=== PATIENT | female | born 1965 | race Caucasian/White ===

== ENCOUNTER 2017-06-02 04:54 | Inpatient (IN) | payer OTHER ==
[2017-05-05 11:37] VITALS: BMI 36.0
--- NOTE | 2017-05-05 12:06 | PAT Medication Instructions ---
Service Date May 05, 2017. Current Home Medication List Alprazolam (Xanax), 1 MG PO QID Celecoxib (CeleBREX), 200 MG PO BID Cholecalciferol (Vitamin D3), 5,000 UNITS PO HS Cyclobenzaprine Hcl (Flexeril), 10 MG PO TID PRN for PRN Fluoxetine (Prozac), 40 MG PO QAM Gabapentin (Neurontin), 300 MG PO HS Oxycodone Ir (Roxicodone Ir), 5 MG PO Q6H PRN for Pain Potassium Ext Rel (Klor-Con), 20 MEQ PO BID [Vitamin B12], 1 TAB PO QAM Medication Instructions For Your Scheduled Surgery - Hold the following medications the morning of surgery: Cyclobenzaprine Hcl (Flexeril), 10 MG PO TID PRN for PRN [Vitamin B12], 1 TAB PO QAM Potassium Ext Rel (Klor-Con), 20 MEQ PO BID - Take the following medications the morning of surgery with a sip of water: Alprazolam (Xanax), 1 MG PO QID Celecoxib (CeleBREX), 200 MG PO BID (ok to continue per surgeon) Fluoxetine (Prozac), 40 MG PO QAM Oxycodone Ir (Roxicodone Ir), 5 MG PO Q6H PRN for Pain (if needed, can be taken up to four hours before surgery) - Take the following medications as scheduled the night before surgery: Alprazolam (Xanax), 1 MG PO QID Cholecalciferol (Vitamin D3), 5,000 UNITS PO HS Celecoxib (CeleBREX), 200 MG PO BID (ok to continue per surgeon) Cyclobenzaprine Hcl (Flexeril), 10 MG PO TID PRN for PRN (if needed) Gabapentin (Neurontin), 300 MG PO HS Potassium Ext Rel (Klor-Con), 20 MEQ PO BID Oxycodone Ir (Roxicodone Ir), 5 MG PO Q6H PRN for Pain (if needed) If you have any questions please call us at [phone] or [phone] or [phone]
--- NOTE | 2017-05-05 12:44 | DIAGNOSTIC IMAGING REPORT ---
CHEST 2 VIEWS ROUTINE CLINICAL HISTORY: Preoperative chest COMPARISON STUDY: No previous studies for comparison. FINDINGS: The cardiac and mediastinal contours are normal. There is no evidence of focal pulmonary consolidation. There is no evidence of failure. No pleural effusions are visualized.[ IMPRESSION: No active disease in the chest. Electronically signed by: Alverto Edmond M.D. 05/05/2017 12:43 PM Dictated Date/Time: 05/05/2017 12:43 PM
[2017-05-05 12:56] LABS: BASO % 0.3 %; BASO ABS # 0.02 K/uL (0-0.2); EOS % 3.2 %; EOS ABS # 0.23 K/uL (0-0.5); HEMATOCRIT 39.6 % (37-47); HEMOGLOBIN 13.2 g/dL (12.0-16.0); IG# 0.01 K/uL (0.00-0.02); LYMPH % 38.2 %; LYMPH ABS # 2.78 K/uL (1.2-3.4); MEAN CORPUSCULAR HEMOGLOBIN 27.3 pg (25-34); MEAN CORPUSCULAR HGB CONC 33.3 g/dl (32-36); MEAN PLATELET VOLUME 9.7 fL (7.4-10.4); MONO % 7.8 %; MONO ABS # 0.57 K/uL (0.11-0.59); NEUT % 50.4 %; NEUT ABS # 3.66 K/uL (1.4-6.5); PLATELET COUNT 255 K/uL (130-400); RED CELL DISTRIBUTION WIDTH CV 13.5 % (11.5-14.5); RED CELL DISTRIBUTION WIDTH SD 40.6 fL (36.4-46.3); WHITE BLOOD COUNT 7.27 K/uL (4.8-10.8)
[2017-05-05 13:05] LABS: PTT PATIENT 28.9 SECONDS (21.0-31.0)
[2017-05-05 13:52] LABS: CALCIUM 9.3 mg/dl (8.5-10.1); CREATININE 1.22 mg/dl (0.60-1.20); POTASSIUM 4.1 mmol/L (3.5-5.1)
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
[~2017-06-02] VITALS: Ht 160 cm; Wt 93.6 kg
[2017-06-02] VITALS (9 sets, daily range): BP systolic 95–133; BP diastolic 62–92; PULSE 69–109; TEMP 35.6–37; O2SAT 95–100; Ht 160 cm; Wt 93.6 kg
[~2017-06-02 04:54] MED LIST: ALPR1TAB3 PO; CHOL20007 PO; CLB/200 PO; CYCL10TA6 PO; FLUO40CA8 PO; GABA-113 PO; OXYC1TAB3 PO; POTA20TA16 PO; VITAMIN B12 PO
[2017-06-02] MEDS ORDERED: ACETAMINOPHEN 500 MG TAB PO SCH (06:00)
[2017-06-02] MEDS ORDERED: CEFAZOLIN 2000MG IV PUSH 10 ML IV SCH (06:00)
[2017-06-02] MEDS ORDERED: CeleBREX 200 MG CAP PO SCH ×2 (06:00→09:00)
[2017-06-02] MEDS ORDERED: FAMOTIDINE 20 MG TAB PO SCH (06:00)
[2017-06-02] MEDS ORDERED: LACTATED RINGER'S 1000ML 500 ML IV SCH (06:00)
[2017-06-02] MEDS ORDERED: GABAPENTIN 300 MG CAP PO SCH (06:00)
[2017-06-02] MEDS ORDERED: LACTATED RINGER'S 1000ML IV SCH (06:00)
[2017-06-02] MEDS ORDERED: DEXAMETHASONE 4 MG TAB PO SCH (06:00)
[2017-06-02] MEDS ORDERED: ROPIVACAINE 5MG/ML 30 ML 150 MG, BUPIVACAINE 0.5% MPF INJ 30 ML, EpINEphrine HCL INJ 0.... INFIL SCH ×8 (06:00)
[2017-06-02] MEDS ORDERED: LACTATED RINGER'S 1000ML 1,000 ML IV SCH (06:00)
[2017-06-02] MEDS ORDERED: BUPIVACAINE 0.25% 30 ML VIAL ONE (06:29)
[2017-06-02] MEDS ORDERED: BUPIVACAINE 0.5 % 5 MG/1 ML PF 10ML VIAL ONE (06:29)
[2017-06-02] MEDS ORDERED: BACITRACIN 50000 UNIT VIAL ONE (06:30)
[2017-06-02] MEDS ORDERED: ORTHO JOINT ANESTHETIC ONE (06:30)
[2017-06-02] MEDS ORDERED: POVIDONE-IODINE OP SOLN 30 ML BTL ONE (06:30)
[2017-06-02] MEDS: TRANEXAMIC ACID INJ 1,000 MG in SYRINGE 0 ML IV SCH ×2 (06:30→06:40)
[2017-06-02] MEDS ORDERED: MIDAZOLAM HCL 1 MG/ML 2ML VIAL ONE (06:48)
[2017-06-02] MEDS ORDERED: VANCOMYCIN INJ 1,500 MG in SODIUM CHLORIDE 0.9% 500ML 500 ML IV STA (06:59)
[2017-06-02] MEDS ORDERED: NURSING VERBAL MED ORDER ONE (07:00)
--- NOTE | 2017-06-02 07:02 | History & Physical Bridge Note ---
H&P Re-Evaluation Bridge Note: I have examined the patient, reviewed the History & Physical and in the interval since the performance of the History & Physical I have noted the following changes of clinical significance: No changes noted
[2017-06-02] MEDS ORDERED: ATROPINE SULFATE 0.1 MG/ML 5ML SYR IV PRN (07:45)
[2017-06-02] MEDS ORDERED: PHENYLEPHRINE 100MCG/ML 5ML SYR IV PRN (07:45)
[2017-06-02] MEDS ORDERED: ONDANSETRON INJ 2 MG/ML 2 ML VIAL IV PRN ×2 (07:45→09:00)
[2017-06-02] MEDS ORDERED: HYDROmorphone INJ 2 MG/ML SYR/VIAL IV PRN (07:45)
--- NOTE | 2017-06-02 08:09 | [facility] Operative Report ---
Operative Report Operative Date Jun 02, 2017. Pre-Operative Diagnosis Degenerative joint disease right knee posttraumatic Post-Operative Diagnosis Degenerative joint disease right knee posttraumatic Procedure(s) Performed Right Total Knee Arthroplasty, Cemented utilizing [employer] journey to patient-matched total knee arthroplasty size 3 femur to tibia 11 poly-[address] Matt Hernandes Registered Radiologic Technologist Surgeon(s) Owen Hutchinson PA-C Estimated Blood Loss 5ml Findings Patient presents with severe end-stage tricompartmental degenerative joint disease of the right knee not responsive to conservative therapy presents for right total knee arthroplasty Specimens A: Right knee bone and tissue Complication(s) None Disposition Recovery Room / PACU Indications Patient presents with a severe end-stage DJD nonresponse to conservative therapy patient has subchondral sclerosis osteophyte formation marginal osteophytes cystic changes and presents for total knee arthroplasty Description of Procedure After proper prepping and draping of the Right lower extremity anterior midline incision was made over the region of the extensor extensor mechanism after meticulous hemostasis was obtained and maintained in subcutaneous tissues a medial parapatellar incision was made The patella was subluxed lateralward the medial lateral gutter were cleaned from any hypertrophic synovitis and scar tissue of the distal femoral block was placed and the distal femoral osteotomy cut was made subsequently the chamfers anterior and posterior osteotomy cuts were made utilizing the 4-in-1 block the tibia was subsequently subluxed anteriorward medial and ateral meniscal remnants were excised in their entirety remnants of the anterior and posterior cruciate ligaments were excised in their entirety excellent exposure of the proximal tibia was obtained the tibial osteotomy guide was placed on the proximal tibial osteotomy cut was made once again the knee was irrigated with copious amounts of sterile saline solution the patella was subsequently everted lateralward thickened scar tissue around the patella was removed the patella was subsequently cut utilizing a freehand technique and was drilled prepared for final preparation and placement of patella socially flexion-extension gaps were checked and the equal and symmetric trials were placed to the appropriate femoral and tibial trials with poly-spacer being placed for equal flexion and extension gaps and full range of motion including extension to 0 and flexion to 140 the trial components after having been taken to recovery range of motion was subsequently removed meticulous hemostasis was obtained and maintained subsequently a knee block injection of joint cocktail including ropivacaine 0.5% 150 mg. Bupivacaine 0.5 % epinephrine 1-200,030 mL's toradol 30 mg dexamethasone 4 mg ketamine 10 mg clonidine 100 micrograms normal saline solution 30 mg was infiltrated into the soft tissues of the posterior knee medial lateral gutters and periosteal synovium special attention was paid to protect neurovascular structures at all times subsequently trial components having been removed the knee was irrigated with sterile saline solution. debris was removed the proximal tibia was subsequently prepared and was made ready for the placement of the tibial component tibial component was also cemented and tamped into position the femoral component was subsequently placed and cemented in the position the patellar component was subsequently cemented in position because hemostasis once again obtained and maintained wound having been thoroughly irrigated with debridement and debridement lavage was performed as well as a medial parapatellar incision closed with #1 Vicryl in interrupted fashion subcutaneous was closed with #2 Vicryl skin was closed with skin clips. PA-C was necessary for prepping and drapping as well as wound closure of deep fascia Sub cutaneous tissue and skin and was necessary for the case. A sterile compressive dressing was placed patient was taken to recovery in stable condition of report dictated by Cecilio I attest to the content of the Intraoperative Record and any orders documented therein. Any exceptions are noted below. I attest to the content of the Intraoperative Record and any orders documented therein. Any exceptions are noted below.
[2017-06-02] MEDS ORDERED: PROPOFOL IV EMULSION 10 MG/ML 20 ML VIAL IV ONE (08:12)
--- NOTE | 2017-06-02 08:14 | [facility] Post Operative Brief Note ---
Immediate Operative Summary Operative Date Jun 02, 2017. Pre-Operative Diagnosis Degenerative joint disease right knee posttraumatic Post-Operative Diagnosis Degenerative joint disease right knee posttraumatic Procedure(s) Performed Right Total Knee Arthroplasty, Cemented utilizing [employer] journey to patient-matched total knee arthroplasty size 3 femur to tibia 11 poly-[address] Matt Hernandes Emt/Dispatcher Surgeon(s) Owen Hutchinson PA-C Estimated Blood Loss 5ml Findings Consistent with Post-Op Diagnosis Specimens A: Right knee bone and tissue Anesthesia Type MAC Spinal Regional Disposition Disposition: Recovery Room / PACU
[2017-06-02] MEDS ORDERED: SOD PHOSPHATE/SOD BIPHOSPHATE ENEMA 132 ML BTL PR PRN (09:00)
[2017-06-02] MEDS ORDERED: CEFAZOLIN IV 2,000 MG in DEXTROSE 5% 50ML 50 ML IV SCH (09:00)
[2017-06-02] MEDS ORDERED: ALUMINUM/MAGNESIUM/SIMETH (MAALOX MAX) 30 ML UDC PO PRN (09:00)
[2017-06-02] MEDS ORDERED: ZOLPIDEM TARTRATE 5 MG TAB PO PRN (09:00)
[2017-06-02] MEDS ORDERED: MAGNESIUM HYDROXIDE SUSP 30 ML UDC PO PRN (09:00)
[2017-06-02] MEDS ORDERED: CYCLOBENZAPRINE HCL 10 MG TAB PO PRN (09:00)
[2017-06-02] MEDS ORDERED: MoRPHine SULFATE 2 MG/ML CARP IV PRN (09:00)
[2017-06-02] MEDS ORDERED: BISACODYL 10 MG SUPP PR PRN (09:00)
[2017-06-02] MEDS ORDERED: TRAMADOL HCL 50 MG TAB PO PRN (09:00)
--- NOTE | 2017-06-02 09:30 | DIAGNOSTIC IMAGING REPORT ---
R KNEE 1 OR 2 VIEWS ROUTINE CLINICAL HISTORY: 51 years-old Female presenting with AP/LATERAL IN PACU RIGHT KNEE. TECHNIQUE: Frontal and lateral views of the right knee were obtained. COMPARISON: None. FINDINGS: Postsurgical changes of total right knee arthroplasty with patellar resurfacing. Surgical drain and intra-articular and soft tissue emphysema noted. No periprosthetic fracture. No hardware complication. No malalignment. IMPRESSION: Expected postsurgical findings status post right total knee arthroplasty with patellar resurfacing. Electronically signed by: Demetris Lorenzana M.D. 06/02/2017 9:28 AM Dictated Date/Time: 06/02/2017 9:26 AM
--- NOTE | 2017-06-02 09:53 | Anesthesiology Progress Note ---
Anesthesia Post Op Note Date & Time Jun 02, 2017 at 09:53 Vital Signs Pain Intensity: 0 Vital Signs Past 12 Hours Date Time Temp Pulse Resp B/P (MAP) Pulse Ox O2 Delivery O2 Flow Rate FiO2 06/02/17 09:32 36.3 94 18 113/88 (93) 100 Nasal Cannula 2 06/02/17 09:16 102 20 105/74 100 06/02/17 09:16 101 20 06/02/17 09:16 101 20 06/02/17 09:16 102 20 105/74 100 06/02/17 09:11 104 19 100 06/02/17 09:11 104 19 100 06/02/17 09:11 104 19 06/02/17 09:11 104 19 06/02/17 09:10 106/66 06/02/17 09:10 106/06/02/17 09:06 104 18 06/02/17 09:06 104 18 100 06/02/17 09:06 104 18 100 06/02/17 09:06 104 18 06/02/17 09:05 9106/02/17 09:05 06/02/17 09:01 106 17 100 06/02/17 09:01 106 17 06/02/17 09:01 106 17 06/02/17 09:01 106 17 100 06/02/17 09:00 96/61 06/02/17 09:00 96/61 06/02/17 08:59 82/50 06/02/17 08:59 82/50 06/02/17 08:56 98 16 89/50 95 06/02/17 08:56 98 16 89/50 95 06/02/17 08:56 97 16 06/02/17 08:56 97 16 06/02/17 08:56 36.0 98 16 89/50 (69) 100 Oxymask 10 06/02/17 05:40 37 91 18 133/92 98 Room Air Notes Mental Status: alert / awake / arousable, participated in evaluation Pt Amnestic to Procedure: Yes Nausea / Vomiting: adequately controlled Pain: adequately controlled Airway Patency, RR, SpO2: stable & adequate BP & HR: stable & adequate Hydration State: stable & adequate Anesthetic Complications: no major complications apparent
[2017-06-02] MEDS ORDERED: MoRPHine SULFATE 10 MG/ML CARP/VIAL IV PRN (11:15)
[2017-06-02] MEDS ORDERED: MoRPHine SULFATE 4 MG/ML 1 ML CARP\\VIAL IV PRN (11:15)
[2017-06-02] MEDS ORDERED: KETOROLAC TROMETHAMINE 30 MG/ML VIAL IV. PRN (12:00)
[2017-06-02] MEDS: PANTOprazole SOD 40 MG TAB PO SCH (12:53)
[2017-06-02] MEDS: MULTIVITAMIN TAB PO SCH (12:53)
[2017-06-02] MEDS: OXYCODONE HCL IR 5 MG TAB (IMMEDIATE RELEASE) PO PRN ×3 (12:54→21:00)
[2017-06-02] MEDS: D5W AND 1/2NSS + 20MEQ KCL 1,000 ML IV SCH ×2 (12:54→21:00)
[2017-06-02] MEDS: FLUOXETINE HCL 20 MG CAP PO SCH (12:54)
[2017-06-02] MEDS: ACETAMINOPHEN 500 MG TAB PO SCH ×2 (14:27→21:01)
[2017-06-02] MEDS: CEFAZOLIN IV 2,000 MG in SYRINGE 5 ML IV SCH ×2 (15:30→23:34)
[2017-06-02] MEDS: ALPRAZOLAM 0.5 MG TAB PO SCH ×3 (15:30→21:00)
[2017-06-02] MEDS: CHOLECALCIFEROL 1000 INTER.UNIT TAB PO SCH (21:00)
[2017-06-02] MEDS: DOCUSATE SODIUM 100 MG CAP PO SCH (21:00)
[2017-06-02] MEDS: POTASSIUM CHLORIDE 20 MEQ TABCR PO SCH (21:00)
[2017-06-02] MEDS: GABAPENTIN 300 MG CAP PO SCH (21:00)
[2017-06-02] MEDS: SENNA 8.6 MG TAB PO SCH (21:00)
[2017-06-02] MEDS: ASPIRIN 81 MG ECTAB PO SCH (21:01)
[2017-06-03 03:13] VITALS: BP 100/66; PULSE 81; TEMP 36.5; O2SAT 97
[2017-06-03] MEDS: ACETAMINOPHEN 500 MG TAB PO SCH ×3 (05:19→21:05)
[2017-06-03 06:08] LABS: HEMATOCRIT 32.9 % (37-47); HEMOGLOBIN 11.1 g/dL (12.0-16.0); MEAN CORPUSCULAR HEMOGLOBIN 27.7 pg (25-34); MEAN CORPUSCULAR HGB CONC 33.7 g/dl (32-36); MEAN PLATELET VOLUME 9.6 fL (7.4-10.4); PLATELET COUNT 215 K/uL (130-400); RED CELL DISTRIBUTION WIDTH CV 13.6 % (11.5-14.5); RED CELL DISTRIBUTION WIDTH SD 41.4 fL (36.4-46.3); WHITE BLOOD COUNT 17.47 K/uL (4.8-10.8)
[2017-06-03] MEDS: D5W AND 1/2NSS + 20MEQ KCL 1,000 ML IV SCH (06:39)
[2017-06-03 06:43] LABS: CALCIUM 8.3 mg/dl (8.5-10.1); CREATININE 1.37 mg/dl (0.60-1.20); POTASSIUM 4.4 mmol/L (3.5-5.1)
[2017-06-03 06:58] VITALS: BP 97/68; PULSE 96; TEMP 36.6; O2SAT 99
--- NOTE | 2017-06-03 08:14 | Orthopedic Progress Note ---
Orthopedic Progress Note Date of Service Jun 03, 2017. Subjective Post OP Day: 1 Reports: feeling well, Denies: chest pain, SOB, nausea / vomiting, light headedness, calf pain Objective calves soft nontender, N/V intact, capillary refill less than 2 sec., dressing C /D/I, A&O x3, toes mobile, hemovac drainage (235/75cc per shift) Date Time Temp Pulse Resp B/P (MAP) Pulse Ox O2 Delivery O2 Flow Rate FiO2 06/03/17 07:00 Room Air 06/03/17 06:58 36.6 96 19 97/68 (78) 99 Room Air 06/03/17 03:13 36.5 81 18 100/66 (77) 97 Room Air 06/02/17 23:30 Room Air 06/02/17 22:57 36.5 69 16 95/62 (73) 96 Room Air 06/02/17 20:51 35.6 91 16 99/67 (78) 95 Room Air 06/02/17 15:39 36.5 99 18 108/68 (81) 95 Room Air 06/02/17 15:30 Room Air 06/02/17 12:48 109 16 125/85 (98) 99 Room Air 06/02/17 12:05 93 16 119/87 (98) 98 Room Air 06/02/17 10:59 82 16 122/86 (98) 100 2.0 06/02/17 10:40 100 Nasal Cannula 2.0 06/02/17 10:27 79 16 118/86 (97) 100 2.0 06/02/17 10:00 36.5 79 16 117/81 (93) 100 Nasal Cannula 2.0 06/02/17 09:52 90 17 06/02/17 09:52 88 17 99 06/02/17 09:51 118/80 06/02/17 09:47 87 18 100 06/02/17 09:47 88 18 06/02/17 09:46 120/87 06/02/17 09:42 92 32 100 06/02/17 09:42 93 32 06/02/17 09:41 113/88 06/02/17 09:37 99 16 06/02/17 09:37 97 16 100 06/02/17 09:36 130/81 06/02/17 09:32 36.3 94 18 113/88 (93) 100 Nasal Cannula 2 06/02/17 09:32 97 17 06/02/17 09:32 97 17 97 06/02/17 09:31 116/74 06/02/17 09:27 103 14 100 06/02/17 09:27 102 14 06/02/17 09:26 105/75 06/02/17 09:22 97 18 100 06/02/17 09:22 98 18 06/02/17 09:21 120/76 06/02/17 09:17 105 17 06/02/17 09:17 104 17 100 06/02/17 09:16 102 20 105/74 100 06/02/17 09:16 101 20 06/02/17 09:16 101 20 06/02/17 09:16 102 20 105/74 100 06/02/17 09:11 104 19 100 06/02/17 09:11 104 19 100 06/02/17 09:11 104 19 06/02/17 09:11 104 19 06/02/17 09:10 106/66 06/02/17 09:10 106/66 06/02/17 09:06 104 18 06/02/17 09:06 104 18 100 06/02/17 09:06 104 18 100 06/02/17 09:06 104 18 06/02/17 09:05 06/02/17 09:05 /06/02/17 09:01 106 17 100 06/02/17 09:01 106 17 06/02/17 09:01 106 17 06/02/17 09:01 106 17 100 06/02/17 09:00 96/61 06/02/17 09:00 96/61 06/02/17 08:59 82/50 06/02/17 08:59 82/50 06/02/17 08:56 98 16 89/50 95 06/02/17 08:56 98 16 89/50 95 06/02/17 08:56 97 16 06/02/17 08:56 97 16 06/02/17 08:56 36.0 98 16 89/50 (69) 100 Oxymask 10 Laboratory Results 24 Hours: Test 06/03/17 05:46 Hematocrit 32.9 % Hemoglobin 11.1 g/dL Prothromb Time International Ratio 1.0 Prothrombin Time 10.1 SECONDS Assessment & Plan Assessment: POD#1 sp right TKA Plan: PT/OT DVT proph- ASA 81mg bid Pain management- Becky, Tylenol DC planning- DC home with OPPT Wednesday DC dressing/drain in AM.
[2017-06-03] MEDS: ALPRAZOLAM 0.5 MG TAB PO SCH ×4 (08:43→21:02)
[2017-06-03] MEDS: POTASSIUM CHLORIDE 20 MEQ TABCR PO SCH ×2 (08:43→21:04)
[2017-06-03] MEDS: DOCUSATE SODIUM 100 MG CAP PO SCH ×2 (08:43→21:03)
[2017-06-03] MEDS: MULTIVITAMIN TAB PO SCH (08:43)
[2017-06-03] MEDS: CYANOCOBALAMIN 500 MCG TAB (VIT B-12) PO SCH (08:44)
[2017-06-03] MEDS: PANTOprazole SOD 40 MG TAB PO SCH (08:44)
[2017-06-03] MEDS: ASPIRIN 81 MG ECTAB PO SCH ×2 (08:44→21:03)
[2017-06-03] MEDS: FLUOXETINE HCL 20 MG CAP PO SCH (08:44)
[2017-06-03] MEDS: OXYCODONE HCL IR 5 MG TAB (IMMEDIATE RELEASE) PO PRN ×4 (08:49→21:03)
--- NOTE | 2017-06-03 12:39 | Discharge Instructions ---
Discharge Instructions Date of Service Jun 03, 2017. Admission Reason for Admission: Right Knee Osteoarthritis Discharge Discharge Diagnosis / Problem: right total knee replacement Discharge Goals Goal(s): Decrease discomfort, Improve function, Increase independence Activity Recommendations Activity Limitations: as noted below Weightbearing Status: Right weightbearing (as tolerated) . Instructions / Follow-Up Instructions / Follow-Up ACTIVITY RECOMMENDATIONS: SELF CARE INSTRUCTIONS AFTER TOTAL KNEE REPLACEMENT A. You may need to continue a physical therapy program after discharge from the hospital. There are several options available to you. Your doctor will assist you in selecting the best one for you. 1. An out-patient facility 2 to 3 times a week for therapy or home therapy. 2. Continue working on all exercises taught to you in the hospital. Your goals should be to increase bending of your knee to 90 degrees and beyond and to fully straighten your knee. B. You may progress at your own pace from walking with a walker or crutches to a cane; then to no assistive devices. C. Make walking a part of your daily routine. Be up as much as comfortable with rest periods throughout the day. Rest with leg elevation is very important. Use the ice wrap frequently for the first 3-4 weeks. D. There are no restrictions on activities. You may ride in a car, shop, participate in weight caller and all social activities. E. Wear the long elastic stockings (SHAINA hose) 20 hours a day for 2 weeks after surgery. They can be removed several times a day for laundering and for a bath. F. You may shower, no tub baths until cleared by your doctor. SPECIAL CARE INSTRUCTIONS: VERY IMPORTANT TO READ AND REVIEW A. There are a few signs you need to watch for after you are home. Call [facility] if you notice any of the followin. Increased severe knee pain. Some pain is expected especially when you exercise. 2. Increased swelling in your leg or knee; pain or swelling of the calf muscle in either lower leg. 3. Any fluid drainage from the incision. 4. Shortness of breath or chest pain. B. Please call [facility] at if you have any concerns or questions about your operation or recovery. The doctor or his nurse will return your call promptly. C. You must take antibiotics before dental work, bladder, bowel or other surgery. Your doctor will provide you with a permanent care to carry describing this precaution. IMPORTANT: * REMEMBER TO TAKE ASPIRIN, 81 MG, TWICE DAILY FOR 4 WEEKS UNLESS OTHERWISE DIRECTED. THIS IS YOUR BLOOD THINNER. * HIGH RISK PATIENTS MAY BE PRESCRIBED A STRONGER BLOOD THINNER. THIS WILL BE PROVIDED AT DISCHARGE. * CALL IF INCREASED PAIN, REDNESS, DRAINAGE OR FEVER GREATER THAT 101. * WEAR SHAINA HOSE 20 HOURS PER DAY FOR 2 WEEKS. * YOU MAY HAVE A LARGE BAND-AID LIKE DRESSING (SILVERON). THIS WILL REMAIN ON YOUR INCISION FOR 7 DAYS, THEN CAN BE REMOVED. IF INCISION IS LEAKING THROUGH DRESSING, CALL THE OFFICE . DERMABOND Prineo- This is a mesh tape dressing that is covered with glue. It should remain in place until the incision is properly healed, usually 10-14 days. This dressing is designed to naturally slough off. You may trim the excess mesh tape as it peels off. Incision may be briefly wet in a shower. Dry immediately by blotting with a clean, dry towel. Do not bath or swim until instructed by your doctor. Do not scratch, rub, or pick at the dressing. Do not apply any topical ointments or lotions until dressing is completely removed and/or instructed by your doctor. There may be a small piece of suture material at one end of your incision. Do not pull or trim this. If it is bothersome or catching on clothing, you may cover it with a band-aid. FOLLOW UP VISIT: If appointment is not already scheduled: Please call [facility] to make a follow-up appointment for 2 weeks after your surgery at . Current Hospital Diet Patient's current hospital diet: Regular Diet Discharge Diet Recommended Diet: Regular Diet Procedures Procedures Performed: Right Total Knee Arthroplasty, Cemented utilizing [employer] journey to patient-matched total knee arthroplasty size 3 femur to tibia 11 poly-29 oval patella Pending Studies Studies pending at discharge: no Medical Emergencies . Who to Call and When: Medical Emergencies: If at any time you feel your situation is an emergency, please call 911 immediately. . Non-Emergent Contact Non-Emergency issues call your: Primary Care Provider, Surgeon . "Provider Documentation" section prepared by Owen Hutchinson. . VTE Core Measure Inpt VTE Proph given/why not?: Other Anticoagulation (ASA 81mg po bid x 1 month ), T.E.D. Stockings, SCD's [place] Drug Monitoring Program Search Results: patient reviewed within database, no issues identified
[2017-06-03 15:09] VITALS: BP 175/83; PULSE 96; TEMP 36.6; O2SAT 98
[2017-06-03 16:58] VITALS: BP 141/76
[2017-06-03] MEDS: SENNA 8.6 MG TAB PO SCH (21:03)
[2017-06-03] MEDS: CHOLECALCIFEROL 1000 INTER.UNIT TAB PO SCH (21:03)
[2017-06-03] MEDS: CeleBREX 200 MG CAP PO SCH (21:04)
[2017-06-03] MEDS: GABAPENTIN 300 MG CAP PO SCH (21:05)
[2017-06-03 22:53] VITALS: BP 105/74; PULSE 105; TEMP 36.5; O2SAT 95
[2017-06-04] MEDS: OXYCODONE HCL IR 5 MG TAB (IMMEDIATE RELEASE) PO PRN ×3 (03:43→13:33)
[2017-06-04] MEDS: ACETAMINOPHEN 500 MG TAB PO SCH ×2 (05:44→13:33)
--- NOTE | 2017-06-04 07:07 | Orthopedic Progress Note ---
Orthopedic Progress Note Date of Service Jun 04, 2017. Subjective Post OP Day: 2 Reports: feeling well, pain controlled w PO medications, Denies: complaints, chest pain, SOB, nausea / vomiting, light headedness, calf pain Objective calves soft nontender, N/V intact, capillary refill less than 2 sec., incision C /D/I, A&O x3, toes mobile Date Time Temp Pulse Resp B/P (MAP) Pulse Ox O2 Delivery O2 Flow Rate FiO2 06/04/17 00:08 Room Air 06/03/17 22:53 36.5 105 16 105/74 (84) 95 Room Air 06/03/17 16:58 141/76 (97) 06/03/17 15:40 Room Air 06/03/17 15:09 36.6 96 18 175/83 (113) 98 Room Air Assessment & Plan Assessment: POD#2 sp right TKA Plan: PT/OT DVT proph- ASA 81mg bid Pain management- Becky, Tylenol DC planning- DC home with OPPT Wednesday d/c after PT today Discharge Planning Discharge Planning: home with oppt DVT Prophylaxis: TEDs, SCDs, ASA
[2017-06-04] MEDS ORDERED: CLB200 PO (07:10)
[2017-06-04] MEDS ORDERED: ACET-24 PO (07:10)
[2017-06-04] MEDS ORDERED: RXC5 PO ×2 (07:10→08:26)
[2017-06-04] MEDS ORDERED: CLC100 PO (07:10)
[2017-06-04] MEDS ORDERED: ULT50X PO (07:10)
[2017-06-04] MEDS ORDERED: ASPEC81 PO (07:10)
[2017-06-04] MEDS ORDERED: ONDA8TAB6 PO (07:10)
--- NOTE | 2017-06-04 07:14 | Discharge Summary ---
Orthopedic Discharge Summary Admission Date/Reason Jun 02, 2017 at 06:45 Right Knee Osteoarthritis. Discharge Date/Disposition Jun 04, 2017 Home Diagnosis Principal Diagnosis: right knee osteoarthritis Procedure(s) Performed Right Total Knee Arthroplasty, Cemented utilizing [employer] journey to patient-matched total knee arthroplasty size 3 femur to tibia 11 poly-29 oval patella Consultations NONE Medication Reconciliation New Medications: Ondansetron Hcl (Zofran) 8 Mg Tab 8 MG PO Q8 PRN for Nausea, #20 TAB Acetaminophen (Sb Non-Aspirin Extra Stre) 500 Mg Tab 1000 MG PO Q8, #63 TAB Aspirin (Aspirin EC Low Dose) 81 Mg Ectab 81 MG PO BID for 30 Days, #60 TAB Celecoxib (Celebrex) 200 Mg Cap 200 MG PO BID for 30 Days, #60 CAP Docusate Sodium (Docusate Sodium) 100 Mg Cap 100 MG PO BID for 10 Days, #20 CAP Oxycodone HCl (Oxycodone HCl) 5 Mg Tab 5-10 MG PO Q4H PRN for Pain, #60 TAB Tramadol HCl (Tramadol HCl) 50 Mg Tab 50-100 MG PO Q4H PRN for Pain, #60 TAB Continued Medications: Alprazolam (Xanax) 1 Mg Tab 1 MG PO QID, TAB Cholecalciferol (Vitamin D3) 2,000 Unit Tab 5000 UNITS PO HS for 90 Days, TAB 3 Refills Cyclobenzaprine Hcl (Flexeril) 10 Mg Tab 10 MG PO TID PRN for PRN, #21 TAB Fluoxetine (Prozac) 40 Mg Cap 40 MG PO QAM, CAP Gabapentin (Neurontin) 300 Mg Cap 300 MG PO HS, CAP Potassium Ext Rel (Klor-Con) 20 Meq Tabcr 20 MEQ PO BID, TAB [Vitamin B12] () 1 TAB PO QAM Discontinued Medications: Celecoxib (CeleBREX) 200 Mg Cap 200 MG PO BID, CAP Oxycodone Ir (Roxicodone Ir) 5 Mg Tab 5 MG PO Q6H PRN for Pain, TAB Admission Physical Exam As per Admitting History & Physical. Hospital Course Patient was a same day admission after undergoing a successful right TKA. she tolerated the procedure well. Post-operatively, her activity was progressed and well tolerated. Please refer to daily progress notes and PT notes for complete details. After exam on 06/04/17, patient felt to be stable for discharge home with OPPT. Patient will f/u in the office in 2 weeks for further evaluation including x-rays and incision check, sooner if having any issues or concerns. Below are pertinent labs/studies during their hospital stay: Last Vital Signs Documentation Date Time Temp Pulse Resp B/P (MAP) Pulse Ox O2 Delivery O2 Flow Rate FiO2 06/04/17 00:08 Room Air 06/03/17 22:53 36.5 105 16 105/74 (84) 95 06/02/17 10:59 2.0 Last Resulted CBC 06/03/17 05:46 Last Resulted BMP 06/03/17 05:46 Discharge Instructions ACTIVITY RECOMMENDATIONS: SELF CARE INSTRUCTIONS AFTER TOTAL KNEE REPLACEMENT A. You may need to continue a physical therapy program after discharge from the hospital. There are several options available to you. Your doctor will assist you in selecting the best one for you. 1. An out-patient facility 2 to 3 times a week for therapy or home therapy. 2. Continue working on all exercises taught to you in the hospital. Your goals should be to increase bending of your knee to 90 degrees and beyond and to fully straighten your knee. B. You may progress at your own pace from walking with a walker or crutches to a cane; then to no assistive devices. C. Make walking a part of your daily routine. Be up as much as comfortable with rest periods throughout the day. Rest with leg elevation is very important. Use the ice wrap frequently for the first 3-4 weeks. D. There are no restrictions on activities. You may ride in a car, shop, participate in diet tech and all social activities. E. Wear the long elastic stockings (SHAINA hose) 20 hours a day for 2 weeks after surgery. They can be removed several times a day for laundering and for a bath. F. You may shower, no tub baths until cleared by your doctor. SPECIAL CARE INSTRUCTIONS: VERY IMPORTANT TO READ AND REVIEW A. There are a few signs you need to watch for after you are home. Call [facility] if you notice any of the followin. Increased severe knee pain. Some pain is expected especially when you exercise. 2. Increased swelling in your leg or knee; pain or swelling of the calf muscle in either lower leg. 3. Any fluid drainage from the incision. 4. Shortness of breath or chest pain. B. Please call [facility] at if you have any concerns or questions about your operation or recovery. The doctor or his nurse will return your call promptly. C. You must take antibiotics before dental work, bladder, bowel or other surgery. Your doctor will provide you with a permanent care to carry describing this precaution. IMPORTANT: * REMEMBER TO TAKE ASPIRIN, 81 MG, TWICE DAILY FOR 4 WEEKS UNLESS OTHERWISE DIRECTED. THIS IS YOUR BLOOD THINNER. * HIGH RISK PATIENTS MAY BE PRESCRIBED A STRONGER BLOOD THINNER. THIS WILL BE PROVIDED AT DISCHARGE. * CALL IF INCREASED PAIN, REDNESS, DRAINAGE OR FEVER GREATER THAT 101. * WEAR SHAINA HOSE 20 HOURS PER DAY FOR 2 WEEKS. * DERMABOND Prineo- This is a mesh tape dressing that is covered with glue. It should remain in place until the incision is properly healed, usually 10-14 days. This dressing is designed to naturally slough off. You may trim the excess mesh tape as it peels off. Incision may be briefly wet in a shower. Dry immediately by blotting with a clean, dry towel. Do not bath or swim until instructed by your doctor. Do not scratch, rub, or pick at the dressing. Do not apply any topical ointments or lotions until dressing is completely removed and/or instructed by your doctor. There may be a small piece of suture material at one end of your incision. Do not pull or trim this. If it is bothersome or catching on clothing, you may cover it with a band-aid. FOLLOW UP VISIT: If appointment is not already scheduled: Please call [facility] to make a follow-up appointment for 2 weeks after your surgery at .
[2017-06-04 07:57] VITALS: BP 122/84; PULSE 90; TEMP 36.6; O2SAT 98
[2017-06-04] MEDS: ALPRAZOLAM 0.5 MG TAB PO SCH ×2 (08:17→13:33)
[2017-06-04] MEDS: POTASSIUM CHLORIDE 20 MEQ TABCR PO SCH (08:18)
[2017-06-04] MEDS: DOCUSATE SODIUM 100 MG CAP PO SCH (08:19)
[2017-06-04] MEDS: MULTIVITAMIN TAB PO SCH (08:19)
[2017-06-04] MEDS: FLUOXETINE HCL 20 MG CAP PO SCH (08:19)
[2017-06-04] MEDS: ASPIRIN 81 MG ECTAB PO SCH (08:19)
[2017-06-04] MEDS: PANTOprazole SOD 40 MG TAB PO SCH (08:19)
[2017-06-04] MEDS: CYANOCOBALAMIN 500 MCG TAB (VIT B-12) PO SCH (08:19)
[2017-06-04] MEDS: CeleBREX 200 MG CAP PO SCH (08:20)
[2017-06-04 08:39] VITALS: O2SAT 98
[2017-06-04 09:33] VITALS: BP 122/84; PULSE 90; TEMP 36.6; O2SAT 98
[2017-06-04 12:10] VITALS: BP 100/70; PULSE 104; TEMP 36.5; O2SAT 97
== END 2017-06-04 14:09 | disposition home or self-care (01) | DRG 470 ==
LOC: C.ACU 04:54 → C.3E 06:45 → ENRESERV 09:38
PROVIDERS: ADMIT Orthopaedic Surgery; ATTEND Orthopaedic Surgery
PROC: 0SRC0J9 Replacement of Right Knee Joint with Synthetic Substitute, Cemented, Open Approach (ICD-10-PCS; principal; 2017-06-02 07:00)
DX: M17.31 Unilateral post-traumatic osteoarthritis, right knee (principal); F41.9 Anxiety disorder, unspecified; K21.9 Gastro-esophageal reflux disease without esophagitis; Z79.899 Other long term (current) drug therapy; Z79.891 Long term (current) use of opiate analgesic